=== PATIENT | female | born 1985 | race Caucasian/White ===

== ENCOUNTER 2022-02-07 09:26 | Emergency (ER) | payer SELFPAY ==
[2022-02-07] MEDS ORDERED: Ketorolac Tromethamine 30 MG/ML VIAL ONE (10:08)
[2022-02-07] MEDS ORDERED: Lidocaine 5% Patch TD SCH (10:30)
[2022-02-07] MEDS ORDERED: Transdermal Patch Removal TOP SCH (22:30)
== END 2022-02-07 11:13 | disposition home or self-care (01) ==
LOC: ERS 09:26
DX: R07.81 Pleurodynia (principal); K21.9 Gastro-esophageal reflux disease without esophagitis
CPT/HCPCS: 96372; J1885